=== PATIENT | female | born 1940 | race Hispanic/Latino ===

== ENCOUNTER 2016-08-07 19:29 | Inpatient (IN) | payer BC, MEDICARE ==
[2016-08-07 19:38] VITALS: BMI 26.4
[2016-08-07] MEDS ORDERED: Sodium Chloride 0.9% 1,000 ML IV STA (19:54)
[2016-08-07] MEDS ORDERED: cefTRIAXone 1 gm 100 ML IV STA (19:54)
--- NOTE | 2016-08-07 20:01 | ED PDOC ---
Arrival/HPI - General Chief Complaint: Weakness/Neurological Deficit Time Seen by Provider: 08/07/16 19:37 Historian: Patient - History of Present Illness Narrative History of Present Illness (Text): 08/07/16 19:43 A 75 year old female presents to the emergency department complaining of nausea , non bloody, non bilious vomiting and worsening generalized weakness for the past 4 days. Patient states she felt as if she was going to pass out so she decided to come to the emergency department for further evaluation. Patient mentions she has a history of frequent UTI and her currently symptoms are similar to previous UTI episodes. She denies any fever, abdominal pain or other complaints at this time. PMD: Dr. Arteaga Time/Duration: Other (4 days) Symptom Onset: Other Symptom Course: Worsening Quality: Other Activities at Onset: Rest Context: Home Past Medical History - Provider Review Nursing Documentation Reviewed: Yes - Infectious Disease Hx of Infectious Diseases: None - Reproductive Menopause: Yes - Cardiac Hx Cardiac Disorders: No - Pulmonary Hx Respiratory Disorders: No - Neurological Hx Neurological Disorder: No - HEENT Hx HEENT Disorder: No - Renal Hx Renal Disorder: No - Endocrine/Metabolic Hx Hypothyroidism: Yes - Hematological/Oncological Hx Blood Disorders: No - Integumentary Hx Dermatological Disorder: No - Musculoskeletal/Rheumatological Hx Musculoskeletal Disorders: Yes Hx Arthritis: Yes - Gastrointestinal Hx Gastrointestinal Disorders: No - Genitourinary/Gynecological Hx Genitourinary Disorders: Yes Other/Comment: bladder infection - Psychiatric Hx Psychophysiologic Disorder: No Hx Substance Use: No - Surgical History Other/Comment: right foot bunion surgery. - Anesthesia Hx Anesthesia: No Hx Anesthesia Reactions: No Hx Malignant Hyperthermia: No Family/Social History - Physician Review Nursing Documentation Reviewed: Yes Family/Social History: No Known Family HX Smoking Status: Never Smoked Hx Alcohol Use: No Hx Substance Use: No Allergies/Home Meds Allergies/Adverse Reactions: Allergies No Known Allergies Allergy (Verified 08/07/16 19:37) Physical Exam - Physical Exam Narrative Physical Exam (Text): - Review of Systems Constitutional: Generalized weakness. absent: Weight Change, Fevers Eyes: Normal ENT: Normal Respiratory: Normal absent: SOB, Cough, Sputum Cardiovascular: absent: Chest pain, Palpitations, Syncope Gastrointestinal: Nausea. Vomiting. absent: Abdominal pain, Diarrhea Genitourinary: Normal. absent: Dysuria, Frequency, Hematuria Musculoskeletal: Normal. absent: Arthralgias, Back Pain, Neck Pain Skin: Normal Neurological: Normal absent: Focal Weakness Endocrine: Normal Hemo/Lymphatic: Normal Psychiatric: Normal - Physical exam Patient appears age appropriate, speaking full sentences without difficulty - Systems Exam Head: Present: Atraumatic, Normocephalic Pupils: Present: PERRL Extraocular Muscles: Present: EOMI Conjunctiva: Present: Normal Mouth: Present: Moist Mucous Membranes Neck: Present: Normal Range of Motion. No: MIDLINE TENDERNESS, Paraspinal Tenderness Respiratory/Chest: Present: Clear to Auscultation, Good Air Exchange. No: Respiratory Distress, Accessory Muscle Use, Tachypneic Cardiovascular: Present: Tachycardia, Regular Rhythm, Normal S1, S2, Peripheral Pulses Present. No: Murmurs Abdomen: Present: Normal Bowel Sounds, No: Tenderness, Peritoneal Signs, Rebound, Guarding, Distention Back: Present: Normal Inspection. No: Midline Tenderness, Paraspinal Tenderness Upper Extremity: Present: Normal Inspection. No: Cyanosis, Edema Lower Extremity: Present: Normal Inspection. No: Edema Neurological: Present: GCS=15, Speech Normal, cranial nerves II through XII fully intact with no cerebellar abnormality, neuro-sensory fully intact. No focal neurological deficits. Skin: Present: Warm, Dry, Normal Color. No: Rashes Lymphatic: Present: OX3, NI, NC Psychiatric: Present: Alert, Oriented x 3, Normal Insight, Normal Concentration Vital Signs Reviewed: Yes Vital Signs Temp Pulse Resp BP Pulse Ox 08/07/16 19:38 98.3 F 108 H 18 171/101 H 99 Temperature: Afebrile Blood Pressure: Hypertensive Pulse: Tachycardic Respiratory Rate: Normal Appearance: Positive for: Well-Appearing, Non-Toxic, Comfortable Pain Distress: None Mental Status: Positive for: Alert and Oriented X 3 Medical Decision Making ED Course and Treatment: 08/07/16 19:43 Impression: A 75 year old female with generalized weakness, nausea and vomiting. On examination of patient's abdomen is soft nontender nondistended with positive bowel sounds in all 4 quadrants and no peritoneal signs. Patient has no focal neurological deficits on examination. Differential Diagnosis include but are not limited to: UTI vs. Near syncope vs. Dehydration Plan: -- EKG -- Chest X-ray -- Labs -- Urinalysis -- Rocephin and IV Fluids -- Reassess and disposition Progress Notes: EKG: Ordered, reviewed, and independently interpreted the EKG. Rate : 110 BPM Rhythm : Sinus tachycardia Interpretation : No ST-segment elevations, normal intervals. Interpreted by me. 08/07/16 20:37 Chest xray interpreted by ED physician shows no pneumothorax, no cardiomegaly, no infiltrates 08/07/16 21:46 Patient's BUN creatinine elevated, fluids have already been ordered. Urinalysis pending. Patient currently resting comfortably in stretcher in no distress. 08/07/16 22:[address] Bennett Aviles, agrees with med/surg admission to his service, dx UTI, dehydration, renal insufficiency pt aware of and agrees with plan - Lab Interpretations Lab Results: 08/07/16 20:23 08/07/16 20:23 Lab Results 08/07/16 21:34: Urine Color yellow, Urine Appearance Clear, Urine pH 6.0, Ur Specific [place] 1.010, Urine Protein 30 H, Urine Glucose (UA) Negative, Urine Ketones Negative, Urine Blood Small H, Urine Nitrate Negative, Urine Bilirubin Negative, Urine Urobilinogen 0.2, Ur Leukocyte Esterase Large H, Urine RBC 10 - 15, Urine WBC 20 - 25, Ur Epithelial Cells Many, Amorphous Sediment Trace, Urine Bacteria Trace 08/07/16 20:23: WBC 9.9, RBC 3.97, Hgb 10.8 L, Hct 32.6 L, MCV 82.1, MCH 27.2, MCHC 33.1, RDW 14.9 H, Plt Count 448, MPV 8.9, Gran % 88.9 H, Lymph % (Auto) 8.8 L, [place] % (Auto) 2.0, Eos % (Auto) 0.1 L, Baso % (Auto) 0.2, Gran # 9.09 H, Lymph # 0.9 L, [place] # 0.2, Eos # 0.0, Baso # 0.02, PT 11.4, INR 1.06, APTT 27.7 , Sodium 133, Potassium 4.2, Chloride 94 L, Carbon Dioxide 24, Anion Gap 19, BUN 23 H, Creatinine 1.7 H, Est GFR ( Amer) 36, Est GFR (Non-Af Amer) 29 , Random Glucose 174 H, Calcium 9.6, Total Bilirubin 0.5, AST 31, ALT 12, Alkaline Phosphatase 114, Lactate Dehydrogenase 379, Total Creatine Kinase 40, Troponin I < 0.01, Total Protein 9.3 H, Albumin 3.9, Globulin 5.4, Albumin/ Globulin Ratio 0.7 L, Lipase 96 I have reviewed the lab results: Yes - RAD Interpretation Radiology Orders: 08/07/16 19:56 CHEST PORTABLE [RAD] Stat - Medication Orders Current Medication Orders: Discontinued Medications Ceftriaxone Sodium (Rocephin 1 Gram Ivpb) 100 mls @ 200 mls/hr IV STAT STA PRN Reason: Protocol Stop: 08/07/16 20:23 Last Admin: 08/07/16 21:34 Dose: 200 MLS/HR eMAR Start Stop Document 08/07/16 21:34 MR (Rec: 08/07/16 21:34 MR [id number]) Intravenous Solution Start Date 08/07/16 Start Time 21:34 End Date 08/07/16 End time 22:04 Total Infusion Time 30 Sodium Chloride (Sodium Chloride 0.9%) 1,000 mls @ 1,000 mls/hr IV .Q1H STA Stop: 08/07/16 20:53 Last Admin: 08/07/16 20:20 Dose: 1,000 MLS/HR eMAR Start Stop Document 08/07/16 20:20 MR (Rec: 08/07/16 20:35 MR [id number]) Intravenous Solution Start Date 08/07/16 Start Time 20:20 End Date 08/07/16 End time 21:20 Total Infusion Time 60 - Scribe Statement The provider has reviewed the documentation as recorded by the Michael Montague Provider Scribe Attestation: All medical record entries made by the Scribe were at my direction and personally dictated by me. I have reviewed the chart and agree that the record accurately reflects my personal performance of the history, physical exam, medical decision making, and the department course for this patient. I have also personally directed, reviewed, and agree with the discharge instructions and disposition. Disposition/Present on Arrival - Present on Arrival Any Indicators Present on Arrival: No History of DVT/PE: No History of Uncontrolled Diabetes: No Urinary Catheter: No History of Decub. Ulcer: No History Surgical Site Infection Following: None - Disposition Have Diagnosis and Disposition been Completed?: Yes Diagnosis: Renal insufficiency Disposition: HOSPITALIZED Disposition Time: 22:25 Patient Plan: Admission Condition: FAIR
[2016-08-07 20:58] LABS: ADD MANUAL DIFF? NO
[2016-08-07 21:10] LABS: BASO # 0.02 [, K/mm3] (0.0-2.0); BASO % 0.2 % (0.0-3.0); EOS % 0.1 % (1.5-5.0); GRAN # 9.09 (1.4-6.5); HEMATOCRIT 32.6 % (36.0-48.0); MEAN CELL VOLUME 82.1 fL (80.0-105.0); MEAN CORPUSCULAR HEMOGLOBIN 27.2 pg (25.0-35.0); MEAN CORPUSCULAR HGB CONC 33.1 g/dl (31.0-37.0); MEAN PLATELET VOLUME 8.9 fl (7.0-11.0); MONO # 0.2 (0.1-0.6); PLATELET COUNT 448 [, 10^3/uL] (120.0-450.0); RED CELL DISTRIBUTION WIDTH 14.9 % (11.5-14.5); WHITE BLOOD COUNT 9.9 [, 10^3/ul] (4.5-11.0)
[2016-08-07 21:11] LABS: ALB/GLOB RATIO 0.7 (1.1-1.8); ALKALINE PHOSPHATASE 114 U/L (38-133); ALT/SGPT 12 U/L (7-56); AST/SGOT 31 U/L (15-39); BILIRUBIN,TOTAL 0.5 mg/dL (0.2-1.3); BLOOD UREA NITROGEN 23 mg/dL (7-21); CALCIUM 9.6 mg/dL (8.4-10.5); CARBON DIOXIDE 24 mmol/L (21-33); CHLORIDE 94 mmol/L (98-107); GFR AFRICAN-AMERICAN 36; GLUCOSE,RANDOM 174 mg/dL (70-110); GRAN % 88.9 % (50.0-68.0); LIPASE 96 U/L (23-300); LYMPH % 8.8 % (22.0-35.0); POTASSIUM 4.2 mmol/L (3.6-5.0); SODIUM 133 mmol/L (132-148); TOTAL PROTEIN 9.3 g/dL (5.8-8.3)
[2016-08-07 21:12] LABS: LYMPH # 0.9 (1.2-3.4)
[2016-08-07 21:15] LABS: INR 1.06 (0.93-1.08); PARTIAL THROMBOPLASTIN TIME 27.7 Seconds (23.7-30.8)
[2016-08-07 21:32] LABS: TROPONIN I < 0.01 ng/mL
[2016-08-07 21:45] LABS: URINE BILIRUBIN NEGATIVE (NEGATIVE); URINE BLOOD SMALL (NEGATIVE); URINE GLUCOSE (UA) NEGATIVE (NEGATIVE); URINE KETONE NEGATIVE (NEGATIVE); URINE LEUKOCYTE ESTERASE LARGE Leu/uL (NEGATIVE); URINE PROTEIN 30 mg/dL (<30 mg/dL); URINE UROBILINOGEN 0.2 E.U./dL (<1 E.U./dL)
[2016-08-07 22:07] LABS: URINE APPEARANCE CLEAR (CLEAR)
[2016-08-07 22:08] LABS: URINE AMORPHOUS SEDIMENT TRACE; URINE BACTERIA TRACE (NEG); URINE EPITHELIAL CELLS MANY /hpf (0-5); URINE WBC 20 - 25 /hpf (0-6)
[2016-08-07] MEDS ORDERED: Sodium Chloride 0.9% 1,000 ML IV SCH (22:30)
[2016-08-08 07:42] LABS: ADD MANUAL DIFF? NO
[2016-08-08 07:48] LABS: BASO # 0.03 [, K/mm3] (0.0-2.0); BASO % 0.3 % (0.0-3.0); EOS # 0.1 (0.0-0.7); EOS % 0.5 % (1.5-5.0); GRAN # 9.39 (1.4-6.5); GRAN % 80.1 % (50.0-68.0); HEMATOCRIT 27.7 % (36.0-48.0); LYMPH # 1.4 (1.2-3.4); LYMPH % 11.6 % (22.0-35.0); MEAN CORPUSCULAR HGB CONC 31.8 g/dl (31.0-37.0); MEAN PLATELET VOLUME 8.3 fl (7.0-11.0); MONO # 0.9 (0.1-0.6); MONO % 7.5 % (1.0-6.0); PLATELET COUNT 377 [, 10^3/uL] (120.0-450.0); WHITE BLOOD COUNT 11.7 [, 10^3/ul] (4.5-11.0)
[2016-08-08 08:03] LABS: ALB/GLOB RATIO 0.7 (1.1-1.8); BILIRUBIN,TOTAL 0.3 mg/dL (0.2-1.3); CALCIUM 8.8 mg/dL (8.4-10.5); POTASSIUM 4.3 mmol/L (3.6-5.0)
--- NOTE | 2016-08-08 08:29 | RAD ---
HISTORY: cough COMPARISON: No prior. FINDINGS: LUNGS: No active pulmonary disease. PLEURA: No significant pleural effusion identified, no pneumothorax apparent. CARDIOVASCULAR: Normal. OSSEOUS STRUCTURES: No significant abnormalities. VISUALIZED UPPER ABDOMEN: Normal. OTHER FINDINGS: None. IMPRESSION: No active disease.
[2016-08-08 09:30] VITALS: TEMP 98.2
--- NOTE | 2016-08-08 10:35 | HP ---
HISTORY OF PRESENT ILLNESS: The patient is a 75-year-old woman with past medical history of osteoarthritis of the right knee, hyperlipidemia, and hypothyroidism who presented to [facility] Emergency Department for evaluation of a several day history of decreased p.o., malaise, dysuria and near syncope. The patient reports that she was in her usual state of health until the onset of her symptoms, which initially involved mild suprapubic discomfort and dysuria. Over the next 48 hours, her symptoms progressed to increased urinary frequency and worsening dysuria. The patient also reported nausea and 2 episodes of nonbloody, nonbilious vomitus associated with her urinary symptoms and states that she has been eating and drinking quite poorly since the onset of her symptoms. Upon arrival to the ED, she was noted to be hypertensive with a blood pressure of 170/90 and tachycardic with a pulse of 108. Initial laboratory studies were largely unremarkable with the exception of some mild renal insufficiency with a creatinine of 1.7. The urinalysis also demonstrated large leukocyte esterase and many bacteria. The patient was started on IV ceftriaxone and normal saline at 100 mL per hour and admitted to [facility] for continued management of UTI. PAST MEDICAL HISTORY: Per HPI, also type 2 diabetes mellitus (diet controlled with most recent A1c of 6.1), normocytic anemia PAST SURGICAL HISTORY: None. ALLERGIES: No known drug allergies. MEDICATIONS: Synthroid 112 mcg p.o. daily. FAMILY HISTORY: Noncontributory. SOCIAL HISTORY: The patient reports social alcohol use. She denies tobacco use or illicit drug abuse. REVIEW OF SYSTEMS: A 14 point review of systems is negative except as per HPI. PHYSICAL EXAMINATION: VITAL SIGNS: Temperature 97.9, pulse 103, blood pressure 140/80, respiratory rate 18, oxygen saturation 100% on room air. GENERAL: No apparent distress. HEENT: PERRL. EOMI. No scleral icterus. Mild conjunctival pallor is noted. NECK: No JVD, no bruits. LUNGS: Clear to auscultation. CARDIOVASCULAR: Regular rate and rhythm. Normal S1 and S2. ABDOMEN: Normoactive bowel sounds, soft, nontender, nondistended. BACK: No flank tenderness. EXTREMITIES: No edema. NEUROLOGIC: Awake, alert and oriented x 3. No focal motor deficits. LABORATORY DATA: WBC 9.9 with 80% neutrophils, hemoglobin 8.8, hematocrit 28, platelets 377. Sodium 139, potassium 4.3, chloride 103, bicarb 25, BUN 21, creatinine 1.5, glucose 92. IMAGING STUDIES: Chest x-ray demonstrates no acute pathology. ASSESSMENT: The patient is a 75-year-old woman with past medical history of hypothyroidism, hyperlipidemia, normocytic anemia, type 2 diabetes mellitus, and osteoarthritis of the right knee, who presented with a several day history of malaise, decreased p.o. intake and dysuria and who was [facility] for management of UTI and dehydration. PLAN: 1. Urinary tract infection. The patient remains afebrile and hemodynamically stable with no evidence of sepsis. Continue with ciprofloxacin 500 mg p.o. b.i.d. to complete 5-day course. Continue to monitor for fever and leukocytosis. 2. Dehydration. Labs demonstrate favorably trending renal function since admission. Continue with normal saline at 100 mL per hour. Continue to encourage p.o. intake. 3. Hyperlipidemia. The patient declines statins. Continue to encourage lifestyle modifications. 4. Type 2 diabetes mellitus (diet controlled, most recent labs demonstrate an A1c of 6.1. Continue with lifestyle modifications. 5. Hypothyroidism. Continue with Synthroid 112 mcg p.o. daily. 6. Normocytic anemia. The patient had labs drawn approximately 1 week ago in her PMD's office which demonstrated hemoglobin of 9.7. The patient was strongly encouraged to pursue followup of her anemia; however, she adamantly declined any further workup. 7. Osteoarthritis of the right knee. The patient followed by Dr. Meade of orthopedic surgery. She will continue follow up with physical therapy upon discharge. 8. Prophylaxis. GI prophylaxis not indicated as the patient is eating. DVT prophylaxis not indicated as patient is ambulatory. 9. Disposition. The patient requesting to be discharged to home today and was advised that if she is able to ambulate without further recurrence of near syncope, she may be discharged to home later today. CODE STATUS: Full code. Bennett Arteaga MD cc: [phone] TT: 08/08/2016 10:34:56 an MEÑO
--- NOTE | 2016-08-08 15:41 | CARD ---
APPROVED REPORT EKG Measurement Heart [id number] <Conclusion> Sinus tachycardia Otherwise normal ECG
[2016-08-08 16:32] VITALS: BP 144/80; PULSE 91; RESP 19; O2SAT 96
== END 2016-08-08 16:56 | disposition home or self-care (01) | DRG 690 ==
LOC: ED 19:29 → ERH 22:26 → 3RSO 08-08 01:32
PROVIDERS: ADMIT Student in an Organized Health Care Education/Training Program; ATTEND Student in an Organized Health Care Education/Training Program
DX: N39.0 Urinary tract infection, site not specified (principal); E86.0 Dehydration; E11.9 Type 2 diabetes mellitus without complications; D64.9 Anemia, unspecified; E78.5 Hyperlipidemia, unspecified; E03.9 Hypothyroidism, unspecified; M17.11 Unilateral primary osteoarthritis, right knee; N28.9 Disorder of kidney and ureter, unspecified; R30.0 Dysuria; R53.1 Weakness; Z87.440 Personal history of urinary (tract) infections